=== PATIENT | male | born 1995 | race Caucasian/White ===

== ENCOUNTER 2016-07-17 15:21 | Emergency (ER) | payer SELFPAY ==
[~2016-07-17] VITALS: Ht 182.9 cm; Wt 74.8 kg
[2016-07-17 15:21] VITALS: BP 119/69
[~2016-07-17 15:21] MED LIST: TRAZ150T14 PO
[2016-07-17] MEDS ORDERED: TYLE325T5 PO (15:44)
[2016-07-17] MEDS ORDERED: IBUP600T26 PO (15:44)
[2016-07-17] MEDS ORDERED: CLEO300C2 PO (15:44)
[2016-07-17] MEDS ORDERED: ACETAMINOPHEN TAB 650MG DOSE (2X325MG) PO ONE (15:45)
== END 2016-07-17 16:02 | disposition home or self-care (01) ==
LOC: M ED 15:53
DX: K02.9 Dental caries, unspecified (principal)

== ENCOUNTER 2016-11-25 22:30 | Emergency (ER) | payer SELFPAY ==
[~2016-11-25] VITALS: Ht 182.9 cm; Wt 75.0 kg
[2016-11-25 22:30] VITALS: BP 133/67
[~2016-11-25 22:30] MED LIST changes: +CLEO300C2 PO; +IBUP-1022 PO; -TRAZ150T14 PO; +TRAZ1TAB14 PO; +TYLE325T5 PO
== END 2016-11-26 00:18 | disposition left against medical advice (07) ==
LOC: M ED 22:30
DX: K08.89 Other specified disorders of teeth and supporting structures (principal); Z53.29 Procedure and treatment not carried out because of patient's decision for other reasons

== ENCOUNTER 2017-05-20 16:30 | Emergency (ER) | payer SELFPAY ==
[2017-05-20] MEDS: KETOROLAC 60 MG/2 ML VIAL (J1885) IM (19:05)
[2017-05-20] MEDS: diazePAM 5 MG TAB PO (19:05)
== END 2017-05-20 19:24 | disposition home or self-care (01) ==
LOC: M ED 16:30
DX: S16.1XXA Strain of muscle, fascia and tendon at neck level, initial encounter (principal); X50.9XXA Other and unspecified overexertion or strenuous movements or postures, initial encounter; Y92.009 Unspecified place in unspecified non-institutional (private) residence as the place of occurrence of the external cause; Y93.H1 Activity, digging, shoveling and raking; F33.9 Major depressive disorder, recurrent, unspecified; F17.210 Nicotine dependence, cigarettes, uncomplicated; Z86.69 Personal history of other diseases of the nervous system and sense organs; Z88.0 Allergy status to penicillin
CPT/HCPCS: J1885

== ENCOUNTER 2017-06-28 01:41 | Emergency (ER) | payer SELFPAY ==
[2017-06-28] MEDS: LIDOCAINE W/EPINEPHRINE 1% 20ML VIAL SC (03:45)
== END 2017-06-28 04:43 | disposition home or self-care (01) ==
LOC: M ED 01:41
DX: K03.2 Erosion of teeth (principal); K08.89 Other specified disorders of teeth and supporting structures; F17.200 Nicotine dependence, unspecified, uncomplicated; Z88.0 Allergy status to penicillin
CPT/HCPCS: 64400

== ENCOUNTER 2018-02-07 19:21 | Emergency (ER) | payer MEDICAID, SELFPAY | END 2018-02-07 20:41 | disposition home or self-care (01) | LOC: M ED 19:21 | DX: F43.0 Acute stress reaction (principal); F43.20 Adjustment disorder, unspecified; F32.9 Major depressive disorder, single episode, unspecified; F17.200 Nicotine dependence, unspecified, uncomplicated; Z88.0 Allergy status to penicillin | CPT/HCPCS: 99284 ==

== ENCOUNTER 2018-07-21 01:49 | Emergency (ER) | payer OTHER ==
[~2018-07-21] VITALS: Ht 182.9 cm; Wt 75.0 kg
[~2018-07-21 01:49] MED LIST changes: +CLEO150C PO; +CYCL10TA PO; +NAPR220C PO; +PRED20TA PO
[2018-07-21] MEDS ORDERED: KETOROLAC 60 MG/2 ML VIAL (J1885) IM ONE (05:00)
[2018-07-21] MEDS ORDERED: CLINDAMYCIN 150 MG CAP PO ONE (05:00)
[2018-07-21] MEDS ORDERED: CLIN150C14 PO (05:04)
[2018-07-21] MEDS ORDERED: KETOROLAC 30 MG/ML VIAL (J1885) As Ordered ONE (05:12)
[2018-07-21 05:24] VITALS: BP 117/74
== END 2018-07-21 05:41 | disposition home or self-care (01) ==
LOC: M ED 01:49
DX: K08.89 Other specified disorders of teeth and supporting structures (principal); Z88.0 Allergy status to penicillin
CPT/HCPCS: 96372; 99283; J1885

== ENCOUNTER 2019-01-21 10:54 | Emergency (ER) | payer MEDICAID, OTHER ==
[~2019-01-21] VITALS: Ht 182.9 cm; Wt 74.5 kg
[~2019-01-21 10:54] MED LIST changes: +CLIN150C14 PO
--- NOTE | 2019-01-21 11:24 | REP ---
Right wrist four views : There is no fracture or dislocation. Mineralization and joint spaces are normal. There are no calcifications or foreign bodies. Impression: Negative right wrist . Electronically Signed by Amado Celestin MD 01/21/2019 11:15 A
--- NOTE | 2019-01-21 11:25 | REP ---
Right hand four views : There is no fracture or dislocation. Mineralization and joint spaces are normal. There are no calcifications or foreign bodies. Impression: Negative right hand . Electronically Signed by Amado Celestin MD 01/21/2019 11:16 A
[2019-01-21] MEDS ORDERED: IBUP-1022 PO (11:26)
[2019-01-21] MEDS ORDERED: TETANUS/DIPHTHERIA TOX ADSORB ADULT 0.5ML SYR/VIAL (90714) IM ONE (11:30)
[2019-01-21] MEDS ORDERED: NORCO, ANEXSIA 5/325MG TABLET (HYDROcodone/ACETAMINOPHEN) PO ONE (11:30)
[2019-01-21 11:56] VITALS: BP 130/67
== END 2019-01-21 12:09 | disposition home or self-care (01) ==
LOC: M ED 10:54
DX: S60.211A Contusion of right wrist, initial encounter (principal); S60.221A Contusion of right hand, initial encounter; S40.011A Contusion of right shoulder, initial encounter; S80.212A Abrasion, left knee, initial encounter; V00.188A Other accident on other rolling-type pedestrian conveyance, initial encounter; Y92.410 Unspecified street and highway as the place of occurrence of the external cause; J45.901 Unspecified asthma with (acute) exacerbation; Z88.0 Allergy status to penicillin; F17.200 Nicotine dependence, unspecified, uncomplicated

== ENCOUNTER 2019-08-21 18:31 | Emergency (ER) | payer MEDICAID ==
[~2019-08-21] VITALS: Ht 182.9 cm; Wt 75.1 kg
[~2019-08-21 18:31] MED LIST changes: +CYCL-707 PO; -CYCL10TA PO
[2019-08-21] MEDS ORDERED: IBUP200C25 PO (18:37)
[2019-08-21] MEDS ORDERED: BENZOCAINE 10% 9GM TUBE (ANBESOL) TOP STA (18:50)
[2019-08-21] MEDS ORDERED: MAGIC MOUTHWASH SUSPENSION BTL SSP STA (18:50)
[2019-08-21] MEDS ORDERED: PERCOCET 5MG/325MG TAB PO ONE (19:00)
[2019-08-21] MEDS ORDERED: IBUPROFEN 800 MG TAB PO ONE (19:00)
[2019-08-21] MEDS ORDERED: MAGICMW SSP (19:10)
[2019-08-21] MEDS ORDERED: ANBE20GE TOP (19:10)
[2019-08-21] MEDS ORDERED: PERC5TAB12 PO (19:10)
[2019-08-21] MEDS ORDERED: CLEO300C2 PO (19:10)
[2019-08-21] MEDS ORDERED: CLINDAMYCIN 150MG CAPSULE PO ONE (19:15)
[2019-08-21] MEDS ORDERED: OXYCODONE/APAP 5MG/325MG(BULK FOR ED) 1 TABLET PO ONE (19:30)
[2019-08-21] MEDS ORDERED: MORPHINE 10 MG/ML 1ML VIAL (J2270) IM ONE (20:00)
[2019-08-21 21:47] VITALS: BP 108/68
== END 2019-08-21 22:00 | disposition home or self-care (01) ==
LOC: M ED 18:31
DX: K02.9 Dental caries, unspecified (principal); K08.89 Other specified disorders of teeth and supporting structures; F17.210 Nicotine dependence, cigarettes, uncomplicated; Z88.0 Allergy status to penicillin; Z79.899 Other long term (current) drug therapy
CPT/HCPCS: 94760; 96372; 99283; J2270

== ENCOUNTER 2019-10-18 09:24 | Emergency (ER) | payer OTHER ==
[~2019-10-18] VITALS: Ht 182.9 cm; Wt 75.0 kg
[~2019-10-18 09:24] MED LIST changes: +ANBE20GE TOP; +IBUP200C25 PO; +MAGICMW SSP; +PERC5TAB12 PO
[2019-10-18] MEDS ORDERED: ACET-683 PO (09:52)
[2019-10-18] MEDS ORDERED: BENZOCAINE 20% GEL 9GM TUBE (ANBESOL MAX STRENGTH) TOP ONE (11:15)
[2019-10-18] MEDS ORDERED: KETOROLAC 30 MG/ML 1ML VIAL IM ONE (11:15)
[2019-10-18] MEDS ORDERED: IBUP80TA PO (12:07)
[2019-10-18] MEDS ORDERED: CLIN150C14 PO (12:07)
[2019-10-18 12:17] VITALS: BP 101/58
[2019-10-19] MEDS ORDERED: NORC1TAB7 PO (23:55)
== END 2019-10-18 12:30 | disposition home or self-care (01) ==
LOC: M ED 09:24
DX: K02.9 Dental caries, unspecified (principal); K03.2 Erosion of teeth; F17.218 Nicotine dependence, cigarettes, with other nicotine-induced disorders; Z88.0 Allergy status to penicillin; F32.9 Major depressive disorder, single episode, unspecified
CPT/HCPCS: 96372; 99283; J1885

== ENCOUNTER 2019-10-19 22:07 | Emergency (ER) | payer OTHER ==
[~2019-10-19] VITALS: Ht 182.9 cm; Wt 75.0 kg
[~2019-10-19 22:07] MED LIST changes: +ACET-683 PO; +IBUP80TA PO
[2019-10-19] MEDS ORDERED: NORC1TAB7 PO (23:55)
[2019-10-20] MEDS ORDERED: NORCO, ANEXSIA 5/325MG TABLET (HYDROcodone/ACETAMINOPHEN) PO ONE
[2019-10-20] MEDS ORDERED: NORCO 5/325MG TABLET (BULK FOR ED) PO ONE
[2019-10-20 00:05] VITALS: BP 104/60
== END 2019-10-20 00:06 | disposition home or self-care (01) ==
LOC: M ED 22:07
DX: K08.89 Other specified disorders of teeth and supporting structures (principal); Z88.0 Allergy status to penicillin

== ENCOUNTER 2020-07-23 05:59 | Emergency (ER) | payer OTHER ==
[~2020-07-23] VITALS: Ht 182.9 cm; Wt 73.9 kg
[~2020-07-23 05:59] MED LIST changes: -CLIN150C14 PO; +CLIN150C15 PO; +NORC1TAB7 PO
[2020-07-23] MEDS ORDERED: KETOROLAC 30 MG/ML 1ML VIAL IM ONE (07:20)
[2020-07-23] MEDS ORDERED: ACETAMINOPHEN 500 MG TAB PO ONE (07:20)
[2020-07-23] MEDS ORDERED: NAPR-837 PO (08:18)
[2020-07-23] MEDS ORDERED: CYCL-707 PO (08:18)
[2020-07-23 08:24] VITALS: BP 107/64
== END 2020-07-23 08:27 | disposition home or self-care (01) ==
LOC: M ED 05:59
DX: M54.2 Cervicalgia (principal); G43.909 Migraine, unspecified, not intractable, without status migrainosus; F33.9 Major depressive disorder, recurrent, unspecified; Z79.899 Other long term (current) drug therapy; Z88.0 Allergy status to penicillin
CPT/HCPCS: 96372; 99283; J1885